=== PATIENT | female | born 1940 | race Caucasian/White ===

== ENCOUNTER 2018-01-30 14:25 | Inpatient (IN) ==
--- NOTE | 2018-01-30 14:55 | History & Physical Report ---
History of Present Illness Date: 01/30/18 Chief complaint: SOA HPI: Bharti Okeefe is a 77 y/o woman who lives alone. She notes progressive weakness and shortness of breath over the last week and a half. She has been too weak to get out of bed, take a shower. She's been wheezing and having a productive cough. She's had subjective fevers and chills. She's been dizzy but denies falling or passing out. Poor PO intake - no food for several days. She denies abdominal pain, n/v. Had an episode of watery black diarrhea, no jenny blood was seen. She's unsure when her last colonoscopy was. Urination has been stable. She also felt a tingling sensation all over her body. She has been seen twice in the ED recently. On 01/27/18 she had an elevated d-dimer and was sent to [place] for CT PE ([place] one [place] [facility] [place]) -- this was reportedly neg. She was seen on 01/29/18 for weakness, and had a WBC of 13.2, hgb of 12, and K of 3.2. She was discharged home. She f/u with Dr. Pierson on 01/30/18, and arrangements were made for hospital admission. Review of Systems All systems PM: 10-point ROS was reviewed, no additional remarkable complaints except - Constitutional Constitutional: Present: anorexia, chills, fatigue, fever(s), weakness, weight loss (1-2 lbs) - EENMT Eyes: Absent: change in vision Mouth/Throat: Absent: pain, changes in swallowing, painful swallowing - Cardiovascular Cardiovascular: Absent: chest pain Vascular: Absent: pedal edema, unilateral swelling - Respiratory Respiratory: Present: cough, dyspnea, wheezing - Gastrointestinal Gastrointestinal: Present: diarrhea, hematochezia. Absent: abdominal pain, nausea, vomiting - Genitourinary Genitourinary: Absent: dysuria, urinary hesitancy, urinary urgency - Musculoskeletal Musculoskeletal: Present: other (RA pain). Absent: back pain - Integumentary/Breasts Integumentary: Absent: rash - Neurological Neurological: Present: dizziness, paresthesias, weakness. Absent: abnormal gait , focal weakness, frequent falls, vertigo - Psychiatric Psychiatric: Absent: anxiety - Endocrine Endocrine: Absent: palpitations - Hematologic/Lymphatic Hematologic/Lymphatic: Present: easy bruising Past Medical History Medical History: Medical History (Last Updated 01/30/18 @ 15:22 by Chanda Jamil APRN) Hypothyroidism Acute rheumatoid arthritis COPD (chronic obstructive pulmonary disease) Osteoporosis Surgical History: low back surgery (~1985). diagnostic laryngoscopy - 2012. Knee arthoscopy -2012. bilateral cataract surgery. R foot surgery. L thumb surgery. shoulder surgery. colonoscopy. hysterectomy Family History: Family History (Last Reviewed 07/03/17 @ 10:06 by Ryan Bach Deysi) Mother Dementia Father Renal failure syndrome Daughter Arthritis Family History Updates: Mother at age 96. Family History: As Above - Social History Smoking status: Former smoker (quit more than 10 years ago) Packs per day: 1 Packs-years: 30 Alcohol intake frequency: does not drink Current occupational status: retired Previous occupational history: [employer] Medications Home Medications Medication Instructions Recorded Confirmed Type Albuterol HFA Inhaler [Ventolin 2 puff INH Q4H PRN 01/29/18 01/30/18 History Hfa 90 mcg/actuation] Albuterol Sulfate 2.5 mg AEROSOL Q4H PRN 01/29/18 01/30/18 History Citalopram [Celexa] 20 mg PO DAILY 01/29/18 01/30/18 History Hydrocodone/APAP 7.5/325 [[place] 1 tab PO DAILY PRN 01/29/18 01/30/18 History 7.5/325] Levothyroxine Sodium 25 mcg PO Q2D 01/29/18 01/30/18 History Levothyroxine Sodium 50 mcg PO Q2D 01/29/18 01/30/18 History Simponi IM 1 MONTH 01/30/18 History Allergies Allergy/AdvReac Type Severity Reaction Status Date / Time NSAIDS (Non-Steroidal Allergy Severe SWOLLEN Verified 01/29/18 12:17 Anti-Inflamma AIRWAY Penicillins Allergy Mild MOUTH Verified 01/29/18 12:17 SWELLING Sulfa (Sulfonamide Allergy Mild MOUTH Verified 01/29/18 12:17 Antibiotics) SWELLING ibuprofen Allergy TONGUE Verified 01/29/18 12:17 SWELLS levofloxacin [From Levaquin] Allergy Verified 01/29/18 12:17 terbinafine [From Lamisil] Allergy rash Verified 01/29/18 12:17 lisinopril AdvReac Unknown COUGH Verified 01/29/18 12:17 Exam - Constitutional Present: no acute distress, well nourished, well developed, thin - Routine HEENT Exam Head: Present: normocephalic Eye: Present: PERRL. Absent: conjunctival icterus, scleral injection ENT: Present: mucous membranes moist, oropharynx clear - Routine Neck Exam Present: supple - Routine Respiratory Exam Present: decreased breath sounds, wheezes (few), diminished air movement - Routine Cardiovascular Exam Present: RRR, S1, S2 - Routine Abdominal Exam Present: soft, normoactive bowel sounds, non distended, non tender - Routine Extremities Exam Present: no edema. Absent: calf tenderness - Routine Back/Spine/Pelvis Exam Back/Spine: Present: full ROM - Routine Skin Exam Present: intact, dry, warm - Routine Neurological Exam Present: alert, oriented X3, CN II-XII intact, moving all extremities, vision grossly intact, hearing grossly intact, normal speech. Absent: sensory deficit , motor deficit, altered mental status, facial asymmetry - Routine Psychiatric Exam Present: normal affect, normal thought process, cooperative Results - Labs CBC & Chem 7: 01/30/18 15:39 01/30/18 15:39 Assessment and Plan (1) COPD exacerbation Current visit: Yes Status: Acute Assessment and Plan: Assessment COPD with exacerbation Black colored stool Leukocytosis 13.2 - noted on 01/29 Hypokalemia 3.2 - noted on 01/29 Hypothyroidism RA - sees Dr. Dent Osteoporosis Plan Admit, observation status. COPD - DuoNeb QID, Pulmicort BID, Solu-Medrol 62.5 mg TID. Start Rocephin/ azithro empirically. Poss GI bleed - repeat hgb; send for occult blood. No ASA/ibu use. Consult sx if needed. Start Protonix Anorexia - IVF. May need dietary consult Repeat labs - f/u on leukocytosis and K. Sepsis w/u also ordered. Check TSH Advanced directives - none. Wishes to name dtr Ebony as DPOA (and she's in agreement). Consult CM to facilitate DPOA. Code status: full code. 01/30/2018-5:50 PM-I examined the patient independently. I reviewed this chart, the patient history, and the FUR REPAIRER's/PA's documented findings as above. We discussed and formulated the assessment and plan as above with the additions below.-Dr. Jenkins The patient was seen today accompanied by her daughter. Her daughter helps with the history. Approximately 1-1/2 weeks ago, the patient developed a cough and hoarse voice. She has since been feeling fatigued and lightheaded. She feels short of breath with activity. She has subjective fevers. Her oral intake has been poor. She denies any pain. Cough is occasionally productive with yellow- green phlegm. She denies any sinus pain. She has a mild chronic headache. She has history of rheumatoid arthritis and receives Simponi once a month. Her last injection was January 14. This can cause immune suppression. She denies any chest pains or palpitations. She denies any rashes or skin lesions. She has not received any steroids recently. The patient was seen in the emergency room yesterday for the above symptoms and had a chest x-ray which was normal, UA was normal, white count was mildly elevated at 13.2, potassium was mildly low at 3.2. CT head showed no acute findings. Phosphorus, magnesium, CPK, and troponin were normal. BNP was elevated at 2500. On exam today she is alert and appears mildly ill. She is warm to touch. HEENT reveals pupils to be equal round and reactive. Oropharynx is moist with a white coating on the tongue. She denies oral pain. Neck is supple with no lymphadenopathy. Carotids are silent. Chest reveals some minimal coarse breath sounds in the bases. Cardiovascular reveals a regular rate and rhythm without murmur. Abdomen is soft and nontender with positive bowel sounds. Extremities are free of edema. Skin is warm and dry and without rashes. CMP today is normal other than BUN of 19 and AST of 40. Pro-calcitonin is 1.10. TSH is pending. Lactate was 1.1. White count was 17.5 up from 13.2 yesterday. Neutrophils 84%. Bands 4% Viral respiratory panel is negative Blood cultures 2 from yesterday are negative Chest x-ray today shows no acute cardiopulmonary abnormalities Impression Fever, fatigue, leukocytosis associated with mild respiratory symptoms. Possible early pneumonia. Rocephin and azithromycin have been initiated. Blood cultures were repeated today. 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 Repeat chest x-ray tomorrow. We'll give IV fluids. Await blood cultures. PA and lateral chest x-ray tomorrow Initial lactate was normal, will repeat later today Repeat pro-calcitonin tomorrow. Check Hemoccults and repeat CBC tomorrow regarding melena Low-dose steroids initiated-consider quick taper if no wheezing on lung exam tomorrow PT and OT evaluation and treatment DVT Prophylaxis: SCD's Resuscitation Status: Full Code - Physician Narrative Narrative: Date: 01/30/18 Time: 1448 Hospital Course Summary Disclaimer: The visit summary below is not to be considered part of the above Progress Note. Hospital Course: 01/30 Admit, observation status. COPD - DuoNeb QID, Pulmicort BID, Solu-Medrol 62.5 mg TID. Start Rocephin/ azithro empirically. Poss GI bleed - repeat hgb; send for occult blood. No ASA/ibu use. Consult sx if needed. Start Protonix Anorexia - IVF. May need dietary consult Repeat labs - f/u on leukocytosis and K. Sepsis w/u also ordered. Check TSH Advanced directives - none. Wishes to name dtr Ebony as DPOA (and she's in agreement). Consult CM to facilitate DPOA. Code status: full code.
[2018-01-30] MEDS ORDERED: ACETAMINOPHEN 325 MG TABLET PO PRN (14:59)
[2018-01-30] MEDS ORDERED: ONDANSETRON 4 MG/2 ML INJECTION IVP PRN (14:59)
[2018-01-30] MEDS ORDERED: SENNA + DOCUSATE TABLET PO PRN (14:59)
[2018-01-30 15:10] VITALS: BMI 21.7
[2018-01-30] MEDS: NS 1,000 ML IV SCH (15:44)
--- NOTE | 2018-01-30 15:51 | XRay Report ---
Indication: SOA PROCEDURE: XR chest 1V: Encounter: Initial Comparison: January 29, 2018 Findings: Slight granuloma again noted in the right apex. Emphysema. No lobar pneumonia, pleural effusion or pneumothorax. The heart size, pulmonary vascularity and mediastinal contours are within normal limits. Degenerative change in the spine. Left shoulder replacement. Impression: Stable chest without acute cardiopulmonary disease. .
[2018-01-30] MEDS: METHYLPREDNISOLONE SOD SUCC 125mg/2ml INJECTION IVP SCH (16:53)
[2018-01-30] MEDS: SALINE FLUSH 10ml SYRINGE IVF PRN ×2 (16:54→20:46)
[2018-01-30] MEDS: CEFTRIAXONE 1 G in NS 100 ML IV SCH (16:54)
[2018-01-30] MEDS: AZITHROMYCIN IV 500 MG in NS 250ml 250 ML IV SCH (17:37)
[2018-01-30] MEDS ORDERED: HYDROCODONE/APAP 7.5 MG/325 MG TABLET PO PRN (17:46)
[2018-01-30] MEDS ORDERED: LEVOTHYROXINE 25 MCG TABLET PO SCH (18:00)
[2018-01-30] MEDS ORDERED: LEVOTHYROXINE 50 MCG TABLET PO SCH (18:00)
[2018-01-30] MEDS: BUDESONIDE INH.SOLN 0.5mg/2ml NEB AEROSOL SCH (19:14)
[2018-01-30] MEDS: ALBUTEROL/IPRATROPIUM 2.5mg-0.5mg/3ml NEB AEROSOL SCH (19:14)
[2018-01-30] MEDS: PANTOPRAZOLE 40 MG INJECTION IVP SCH (20:45)
[2018-01-30] MEDS: NYSTATIN 500,000 units/5 ml ORAL LIQUID PO SCH (20:45)
[2018-01-31] MEDS: METHYLPREDNISOLONE SOD SUCC 125mg/2ml INJECTION IVP SCH ×2 (02:19→08:41)
[2018-01-31] MEDS: NS 1,000 ML IV SCH ×2 (04:32→15:15)
[2018-01-31] MEDS: LEVOTHYROXINE 25 MCG TABLET PO SCH (06:30)
[2018-01-31] MEDS: BUDESONIDE INH.SOLN 0.5mg/2ml NEB AEROSOL SCH ×2 (07:56→21:15)
[2018-01-31] MEDS: ALBUTEROL/IPRATROPIUM 2.5mg-0.5mg/3ml NEB AEROSOL SCH ×4 (07:56→21:11)
[2018-01-31] MEDS: NYSTATIN 500,000 units/5 ml ORAL LIQUID PO SCH ×4 (08:43→20:36)
[2018-01-31] MEDS: CITALOPRAM 20 MG TABLET PO SCH (08:43)
[2018-01-31] MEDS: PANTOPRAZOLE 40 MG INJECTION IVP SCH ×2 (08:43→20:36)
--- NOTE | 2018-01-31 14:46 | Progress Note ---
- Date 01/31/18 Subjective: The patient was seen today accompanied by her daughters. She states she's feeling a little better. Breathing is improving but not back to normal. She is short of breath with activity. Lightheadedness has improved but she was still orthostatic on testing with blood pressure dropping by 30. Her appetite is improving. She denies any pain. She was not able to cough up any phlegm. She reports chills last night and then this morning she woke up diaphoretic. Her daughters noticed that she's been tremulous since she became ill about a week ago. Objective Vital signs: Temperature 96.0 F L 01/31/18 14:01 Pulse Rate 93 01/31/18 13:55 Respiratory Rate 16 01/31/18 11:22 Blood Pressure 119/57 01/31/18 13:55 Pulse Oximetry 96 01/31/18 11:22 Height/Weight/BMI: Height 1.55 m Weight 53.5 kg Body Mass Index 21.7 Comments: MAXIMUM TEMPERATURE 100.3, T current 96.0 O2 sat is 92% on room air Blood pressure lying is 143/72 with pulse of 63. Sitting 126/72 with pulse of 68. Standing blood pressure 112/67 with pulse of 72. GEN-alert, oriented, no acute distress HEENT-sclera anicteric, oropharynx is moist, tongue is white coated NECK-supple, no lymphadenopathy CV-regular rate and rhythm CHEST-lungs sounds are improving ABD-soft, nontender with positive bowel sounds -no Erwin EXT-no edema NEURO-mild tremulousness SKIN-warm and dry Results - Labs CBC & Chem 7: 01/31/18 04:41 01/31/18 04:41 Labs: White count 17.0 yesterday and 12 today. Bands 4 yesterday and 1 today. Microbiology Results: Microbiology 01/30/18 15:39 Peripheral/Iv Start Blood Culture - Preliminary Culture Initiated - Results Pending 01/30/18 15:44 Peripheral/Iv Start Blood Culture - Preliminary Culture Initiated - Results Pending - Impressions Chest x-ray on my read reveals no acute cardiopulmonary abnormality. Official report is pending Assessment and Plan (1) COPD exacerbation Current visit: Yes Status: Acute Assessment and Plan: Assessment COPD with exacerbation Fever, fatigue, leukocytosis associated with mild respiratory symptoms. Possible early pneumonia. Rocephin and azithromycin have been initiated. Blood cultures were repeated today. 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 Dent Depression Hypothyroidism Orthostatic hypotension Possible melena-hemoglobin stable -11.6 today and 12.2 yesterday Osteoporosis Plan An order was written this morning for observation status that was to have started yesterday. Order was apparently not placed yesterday. Today, the patient is improving but is not stable for discharge. Will change to inpatient status due to continued symptoms of COPD exacerbation. With her fever, leukocytosis and immunocompromised status would continue azithromycin and ceftriaxone for now. She seems to be improving. Will encourage by mouth fluids and discontinue IV fluids for now. Await blood culture results. Decrease Solu-Medrol to twice daily Repeat CBC and renal panel tomorrow Anorexia is improving PT and OT did see the patient and recommended home with family assist DVT Prophylaxis: SCD's Resuscitation Status: Full Code - Physician Narrative Narrative: Date: 01/31/18 Time: 1441 Hospital Course Summary Disclaimer: The visit summary below is not to be considered part of the above Progress Note. Hospital Course: 01/30 Admit, observation status. COPD - DuoNeb QID, Pulmicort BID, Solu-Medrol 62.5 mg TID. Start Rocephin/ azithro empirically. Poss GI bleed - repeat hgb; send for occult blood. No ASA/ibu use. Consult sx if needed. Start Protonix Anorexia - IVF. May need dietary consult Repeat labs - f/u on leukocytosis and K. Sepsis w/u also ordered. Check TSH Advanced directives - none. Wishes to name dtr Ebony as DPOA (and she's in agreement). Consult CM to facilitate DPOA. Code status: full code. 01/31/2013 An order was written this morning for observation status that was to have started yesterday. Order was apparently not placed yesterday. Today, the patient is improving but is not stable for discharge. Will change to inpatient status due to continued symptoms of COPD exacerbation. With her fever, leukocytosis and immunocompromised status would continue azithromycin and ceftriaxone for now. She seems to be improving. Will encourage by mouth fluids and discontinue IV fluids for now. Await blood culture results. Decrease Solu-Medrol to twice daily Repeat CBC and renal panel tomorrow Anorexia is improving PT and OT did see the patient and recommended home with family assist
[2018-01-31] MEDS: CEFTRIAXONE 1 G in NS 100 ML IV SCH (15:14)
[2018-01-31] MEDS: AZITHROMYCIN IV 500 MG in NS 250ml 250 ML IV SCH (15:51)
[2018-01-31] MEDS ORDERED: METHYLPREDNISOLONE SOD SUCC 125mg/2ml INJECTION IVP SCH (21:00)
[2018-02-01] MEDS: LEVOTHYROXINE 25 MCG TABLET PO SCH (06:14)
[2018-02-01] MEDS ORDERED: LEVOTHYROXINE 50 MCG TABLET PO SCH (06:30)
[2018-02-01] MEDS: ALBUTEROL/IPRATROPIUM 2.5mg-0.5mg/3ml NEB AEROSOL SCH ×3 (07:32→15:19)
[2018-02-01] MEDS: BUDESONIDE INH.SOLN 0.5mg/2ml NEB AEROSOL SCH (07:32)
[2018-02-01 08:00] VITALS: BP 128/67
[2018-02-01 08:33] VITALS: TEMP 96
[2018-02-01] MEDS: CITALOPRAM 20 MG TABLET PO SCH (09:26)
[2018-02-01] MEDS: PANTOPRAZOLE 40 MG INJECTION IVP SCH (09:26)
[2018-02-01] MEDS: SALINE FLUSH 10ml SYRINGE IVF PRN (09:26)
[2018-02-01] MEDS: NYSTATIN 500,000 units/5 ml ORAL LIQUID PO SCH ×3 (09:26→16:51)
--- NOTE | 2018-02-01 10:54 | Pharmacy Note - Antibiotics ---
Pharmacy - Antibiotic Therapy - Laboratory Information Laboratory 01/30/18 01/30/18 01/31/18 15:39 15:39 04:41 Creatinine 1.1 0.8 D Estimated Creat Clear 33 36 Procalcitonin 1.10 02/01/18 02/01/18 04:46 04:46 Creatinine 0.7 Estimated Creat Clear 37 Procalcitonin 0.49 - Antibiotic Information CULTURE AND SENSITIVITY REVIEW: Organism: E. Coli Site: Siri/IV Antibiotic: Ceftriaxone 1 g iv every 24 hours Sensitivity: M.I.C </= 1 Recommendation/Action: No change Thanks, Mario Granados, Pharmacist
[2018-02-01 11:24] VITALS: O2SAT 96
--- NOTE | 2018-02-01 14:48 | Discharge Summary ---
Discharge Information Date of admission: 01/31/18 14:45 Anticipated date of discharge: 02/01/18 Attending Physician: Vanessa Jenkins MD Primary care physician: Rosaura Pierson MD - Discharge Diagnosis (1) COPD exacerbation Status: Acute COPD with exacerbation Fever, fatigue, leukocytosis associated with mild respiratory symptoms. Immunosuppression secondary to Simponi for rheumatoid arthritis Black colored stool-resolved Leukocytosis -present on admission-improved from 17 down to 12 RA - sees Dr. Dent Depression Hypothyroidism Orthostatic hypotension-resolved Osteoporosis normocytic anemia - Laboratory Labs: 02/01/18 04:46 02/01/18 13:37 Viral Respiratory panel was negative Urinalysis was essentially normal Laboratory Tests 01/30/18 01/30/18 01/30/18 15:39 15:39 15:39 WBC 17.5 H Hgb 12.2 Potassium 4.2 D BUN 19.0 H Creatinine 1.1 Calcium Phosphorus Magnesium Procalcitonin 1.10 TSH 2.00 01/31/18 01/31/18 02/01/18 04:41 04:41 04:46 WBC 12.0 H 13.3 H Hgb 11.6 L 10.8 L Potassium 3.9 BUN Creatinine Calcium Phosphorus Magnesium Procalcitonin TSH 02/01/18 02/01/18 02/01/18 04:46 04:46 13:37 WBC Hgb Potassium 3.0 L D 3.1 L BUN 16.0 Creatinine 0.7 Calcium 8.5 Phosphorus 3.2 Magnesium 2.1 Procalcitonin 0.49 TSH - Microbiology Microbiology 01/30/18 15:44 Peripheral/Iv Start Blood Culture - Preliminary No Growth After 1 Day 01/30/18 15:39 Peripheral/Iv Start Blood Culture - Preliminary No Growth After 1 Day - Radiology Radiology: Chest x-ray 01/30/2018 showed stable chest without acute cardiopulmonary disease Repeat chest x-ray 01/31/2018 on my read shows no acute cardiopulmonary disease. Official radiology report is pending History of Present Illness HPI: Bharti Okeefe is a 77 y/o woman who lives alone. She notes progressive weakness and shortness of breath over the last week and a half. She has been too weak to get out of bed, take a shower. She's been wheezing and having a productive cough. She's had subjective fevers and chills. She's been dizzy but denies falling or passing out. Poor PO intake - no food for several days. She denies abdominal pain, n/v. Had an episode of watery black diarrhea, no jenny blood was seen. She's unsure when her last colonoscopy was. Urination has been stable. She also felt a tingling sensation all over her body. She has been seen twice in the ED recently. On 01/27/18 she had an elevated d-dimer and was sent to [place] for CT PE (the one at [facility] [place] was under repair) -- this was reportedly neg. She was seen on 01/29/18 for weakness, and had a WBC of 13.2, hgb of 12, and K of 3.2. She was discharged home. She f/u with Dr. Pierson on 01/30/18, and arrangements were made for hospital admission. Objective Vital signs: Temperature 96.0 F L 02/01/18 07:00 Pulse Rate 103 H 02/01/18 08:00 Respiratory Rate 16 02/01/18 11:23 Blood Pressure 128/67 02/01/18 07:57 Pulse Oximetry 96 02/01/18 11:23 Height/Weight/BMI: Height 1.55 m Weight 53.1 kg Body Mass Index 21.7 Comments: On the day of discharge the patient is afebrile pulse 48 hours. 2 sat 96% on room air. Respirations 16. Blood pressure lying 128/67 with pulse of 88 Blood pressure sitting 137/69 pulse of 89 Blood pressure standing 126/66 with pulse of 93 General the patient is alert and oriented and in no acute distress. Tremulousness that she had earlier in the hospital course has resolved. HEENT reveals oropharynx to being moist. Neck is supple. Chest is clear to auscultation. Cardiovascular reveals a regular rate and rhythm. Abdomen is soft and nontender. Extremities are free of edema. Hospital Course This is a general summary of the patient's hospital course. For more details refer to the complete medical record. Hospital course: The patient was admitted on 01/30/2018 with fever, elevated white count, COPD exacerbation, and anorexia. She is immune compromised while on Simponi retorted arthritis. The patient was placed on azithromycin and Rocephin empirically for possible early pneumonia. Was continued on breathing treatments and steroids were added for COPD exacerbation. Blood cultures were obtained and are negative at the time of discharge. Over the hospital course, the patient's dyspnea resolved. Feverishness and fatigue resolved. Her tremulousness resolved. Appetite improved markedly. The patient was noted to have hypokalemia which is being treated with oral potassium. IV fluids were discontinued the day prior to discharge. The patient had recorded a dark stool prior to admission. She has had normal brown appearing stools here. Hemoccult was ordered, but stool was flushed before testing could be done. Patient does have mild normocytic anemia with hemoglobin of 10.8. This is down from 12.2 on admission and is likely dilutional. PT and OT did see the patient on 01/31/2018 and recommended home with family assist On 01/31/2018 the patient was feeling much better. She feels ready for dismissal. Her daughter and son-in-law were present and are in agreement with dismissal to home today. She will be discharged on azithromycin to finish a five-day course. She will also be given Vantin to finish a five-day course of cephalosporin. She will receive potassium 40 mEq this evening and 40 mEq on the morning of 07/2017. I recommended that she have lab work on 02/03/2018 to check a CBC and basic metabolic profile. I've asked the patient follow-up with Dr. Pierson later this week. The patient may benefit from formal pulmonary function testing. She does not recall having a PFT in the past. Blood cultures are negative to date, but have not been finalized. Time spent with patient: discharge greater than 30 minutes External Problems Reviewed(CCD)?: No Resuscitation Status: Full Code Discharge Plan - Discharge Disposition Discharge Date: 02/01/18 Disposition: 01 Discharged Home, Self-Care *Condition: Stable Reason For Visit (Visit label in EMR): COPD exasterbation - Discharge Medications Medication Comments: Okay to restart Simponi if you're infection symptoms have completely resolved. *Discharge Medications: New Cefpodoxime [Vantin] 200 mg PO BID #4 tab Potassium Chloride [Klor-Con M20] 40 meq PO DAILY #4 tab.er.prt predniSONE [Prednisone] 20 mg PO WB 3 Days #3 tab Azithromycin 250 mg PO DAILY #2 tab Continue Levothyroxine Sodium 25 mcg PO Q2D Citalopram [Celexa] 20 mg PO DAILY Levothyroxine Sodium 50 mcg PO Q2D Hydrocodone/APAP 7.5/325 [[place] 7.5/325] 1 tab PO DAILY PRN PRN Reason: Pain Simponi IM 1 MONTH Changed Albuterol Sulfate 2.5 mg AEROSOL BID PRN #0 PRN Reason: Prn Orders Discontinued Albuterol HFA Inhaler [Ventolin Hfa 90 mcg/actuation] 2 puff INH Q4H PRN PRN Reason: Prn Orders - Discharge Packet/Instructions *Diet: Diet as tolerated *Activity: Light activity *Pain Management/Treatment: Tylenol as needed *Wound Care: Not applicable Additional Instructions: Go in to Dr. Pierson's office for lab work on 2017. You will be given a prescription to hand carry. *Expected Signs/Symptoms: Mild fatigue *Notify Physician if: Fevers, lightheadedness, vomiting, severe diarrhea, shortness of breath that does not resolve with breathing treatment, recurrence of black stools, or any other concerning symptoms. *During Business Hours Contact: Call Dr. Pierson's office *After Business Hours Contact: [facility] staple processing machine operator at [phone] Pierson or one of her partners paged *Pending Lab/Results: Follow up w/Provider (Blood cultures will not be final for the next 3 days) - Referrals/Follow Up - Patient Handouts - Dismissal Complete Discharge Instructions are:: Complete Physician Narrative - Narrative Attestation Narrative: Date: 02/01/18 Time: 0647
[2018-02-01] MEDS: AZITHROMYCIN IV 500 MG in NS 250ml 250 ML IV SCH (15:09)
[2018-02-01 15:21] VITALS: RESP 18
[2018-02-01 16:24] VITALS: PULSE 81
[2018-02-01] MEDS: CEFTRIAXONE 1 G in NS 100 ML IV SCH (16:50)
--- NOTE | 2018-02-01 20:20 | XRay Report ---
INDICATION: fever, dyspnea PROCEDURE: CHEST 2-VIEWS UPRIGHT (PA & LAT) Encounter: Initial COMPARISON: January 30, 2018 FINDINGS: Developing opacity in the lower lobes bilaterally. Upper lung ruiz appear clear. Emphysema. No pneumothorax. Trace pleural effusions. Heart size and mediastinal contours are stable. Pulmonary vascularity is slightly more prominent. Impression: Developing lower lobe atelectasis or pneumonia with trace effusions. .
== END 2018-02-01 18:05 | disposition home or self-care (01) | DRG 192 ==
LOC: MED → SUATTDRO 14:33
PROVIDERS: ADMIT Internal Medicine; ATTEND Internal Medicine